=== PATIENT | female | born 1955 | race Caucasian/White ===

== ENCOUNTER → 2021-11-17 | Outpatient (CLI) | payer MEDICARE ==
[2021-11-17 10:23] VITALS: BP 124/75; PULSE 89; RESP 18; TEMP 98.4
--- NOTE | 2021-11-17 11:23 | P.HPOB ---
History of Present Illness H&P Date: 11/17/21 Chief Complaint: The patient is here for her routine gynecologic exam and ma mmogram. This is a 65-year-old with an LMP of 2011. The patient is here to establish with this office. Her last pelvic exam was about 3 years ago. She states she saw somebody out of town for this. She had some type of benign growth removed from her cervix at that time. She is without gynecologic complaints and denies any postmenopausal bleeding. Review of Systems The patient has gained 12 pounds over the last year. She denies respiratory, cardiac, or G.I. problems. Past Medical History Past Medical History: Hypertension, Osteoarthritis (OA) History of Any Multi-Drug Resistant Organisms: None Reported Past Surgical History: Joint Replacement, Orthopedic Surgery Additional Past Surgical History / Comment(s): 1972 BL ORIF SURGERY, D&C for RETAINED PLACENTA, LASIK EYE, TOTAL L KNEE REPLACEMENT 2019. Colonoscopy 2020(next after 10y) Past Anesthesia/Blood Transfusion Reactions: No Reported Reaction Past Psychological History: No Psychological Hx Reported (She denies any current depression.) Smoking Status: Never smoker Past Alcohol Use History: Occasional (One per week) Past Drug Use History: None Reported Additional History: She has been since 1987 and this is her second marriage. 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 - Past Family History Mother Family Medical History: Myocardial Infarction ([place]) Additional Family Medical History / Comment(s): Ulcerative colitis. Maternal grandmother had an [place]. Father Family Medical History: Diabetes Mellitus, Hypertension Additional Family Medical History / Comment(s): Paternal grandmother and paternal aunt had breast cancer. Medications and Allergies Home Medications Medication Instructions Recorded Confirmed Type Multivitamin [Multivitamins Adult 1 cap PO DAILY 11/17/21 11/17/21 History Gummies] amLODIPine [Norvasc] 10 mg PO DAILY 11/17/21 11/17/21 History Allergies Allergy/AdvReac Type Severity Reaction Status Date / Time No Known Allergies Allergy Unverified 11/17/21 10:13 Exam Vital Signs Temp Pulse Resp BP Pulse Ox 11/17/21 10:16 98.4 F 89 18 124/75 98 Intake and Output 11/16/21 11/17/21 11/17/21 22:59 06:59 14:59 Other: Weight 82.554 kg Height 5 feet 5 inches, weight 182 pounds, BMI 30.3. This is a well-developed well-nourished white female who is alert and oriented times 3 in no acute distress. HEENT: Within normal limits. NECK: Supple without mass or thyromegaly. CHEST AND LUNGS: Clear to auscultation. There is a benign-appearing brown mole in the left subclavicular region measuring 8 x 9 mm. She states it has been there for many years. HEART: Regular rate and rhythm. BREASTS: Are without mass or discharge. AXILLARY EXAM: Negative for adenopathy. BACK: Negative for CVA tenderness. ABDOMEN: Soft, nontender, without palpable masses. PELVIC EXAM: Normal external genitalia with mild atrophy. Cervix and vagina appear normal with mild atrophy. There is no unusual discharge. There is a small grade 1-2 uterine prolapse which is asymptomatic. There is no other evidence of prolapse. The uterus is midposition, nongravid size and nontender. There are no palpable adnexal masses or tenderness. RECTAL EXAM: Rectovaginal exam is negative for mass or tenderness and is negative for occult blood. EXTREMITIES: Nontender. IMPRESSION: 1. 65-year-old menopausal female with asymptomatic grade 1-2 uterine prolapse and otherwise unremarkable gynecologic exam. PLAN: 1. Pap smear cotest was performed. Being that we do not have her exact Pap smear screening history, we will continue cervical screening until we have 2 negative Pap smear cotest. 2. Self breast awareness was discussed with the patient. We have also discussed symptoms associated with inflammatory breast cancer. 3. Screening mammogram will be done today. 4. I have recommended that she see a warp picker for skin checks and to monitor the mole on the left subclavicular region. 5. Osteoporosis prevention was discussed. I have stressed the importance of adequate calcium, vitamin D and regular exercise. Recommended amounts of calcium and vitamin D were also discussed. She states she had a normal bone density test 3 years ago. We will plan on repeating the bone density test in approximately 2 years. 6. She did receive a Covid vaccination and has received 2 boosters. 7. She was advised to return in one year for her annual well woman exam.
--- NOTE | 2021-11-18 11:25 | MM ---
Reason for Exam: Screening (asymptomatic). Last mammogram was performed 1 year(s) and 5 month(s) ago. Patient History: Menarche at age 12. Postmenopausal. Maternal unspecified had breast cancer. Risk Values: Ruth Ann 5 year model risk: 1.2%. NCI Lifetime model risk: 4.6%. Prior Study Comparison: 08/27/2003 Right Special View Mammogram, [facility]. 03/05/2017 Bilateral MG screening mammo w CAD - 2, [facility]. 07/03/2020 Bilateral MG screening mammo w CAD - 2, [facility]. Tissue Density: There are scattered fibroglandular densities. Findings: Analyzed By CAD. There is no suspicious group of microcalcifications or new suspicious mass in either breast. Overall Assessment: Negative, BI-RAD 1 Management: Screening Mammogram of both breasts in 1 year. A clinical breast exam by your physician is recommended on an annual basis and results should be correlated with mammographic findings. Electronically signed and approved by: Edgar Cobian M.D.
== END ==
LOC: WWCWWP 09:58
PROVIDERS: ATTEND Obstetrics & Gynecology
DX: Z01.419 Encounter for gynecological examination (general) (routine) without abnormal findings (principal); Z12.31 Encounter for screening mammogram for malignant neoplasm of breast; I10 Essential (primary) hypertension; M19.90 Unspecified osteoarthritis, unspecified site; F32.A Depression, unspecified; Z78.0 Asymptomatic menopausal state; Z79.899 Other long term (current) drug therapy; Z80.3 Family history of malignant neoplasm of breast
CPT/HCPCS: 77067

== ENCOUNTER → 2022-02-10 | Outpatient (CLI) | payer MEDICARE ==
--- NOTE | 2022-02-11 19:21 | BD ---
EXAMINATION TYPE: Axial Bone Density DATE OF EXAM: 02/10/2022 COMPARISON: NONE CLINICAL HISTORY: 66 year old Female. ICD-10 CODE: Z78.0 MENOPAUSAL STATE Height: 63 Weight: 176.5 FRAX RISK QUESTIONS: Alcohol (3 or more units per day): no Family History (Parent hip fracture): no Glucocorticoids (More than 3mos): no (Ex: prednisone, prednisolone, methylprednisolone, dexamethasone, and hydrocortisone). History of Fracture in Adulthood: yes Secondary Osteoporosis: 1. Type 1 Diabetes: no 2. Hyperthyroidism: no 3. Menopause before 45: no 4. Malnutrition: no 5. Chronic liver disease: no Rheumatoid Arthritis: no Current Tobacco Use: no RISK FACTORS HISTORY OF: Surgery to Spine/Hip(right/left)/Wrist (right/left): bilateral femurs When: age 18 Family History of Osteoporosis: yes Active: yes Diet low in dairy products/other sources of calcium: no Postmenopausal woman: yes Lost more than 2 inches in height since high school: yes MEDICATIONS: Additional History: EXAM MEASUREMENTS: Bone mineral densitometry was performed using the [employer] System. Bone mineral density as measured about the Lumbar spine is: ----- L1-L4(G/cm2): 1.141 T Score Values are as follows: ----- L1: -1.1 ----- L2: -0.8 ----- L3: 0.5 ----- L4: -0.2 ----- L1-L4: -0.3 Bone mineral density : baseline Bone mineral density about the L Wrist (g/cm2): 0.622 T Score values are as follows: -----Dist. R+U: -0.6 -----Prox. R+U: -0.8 -----Radius total: -0.9 Bone mineral density : baseline IMPRESSION: Normal (Values between +1 and -1 indicate normal bone mass). Consider repeating this study in 5 year s or sooner if there is some new clinical indication. NOTE: T-SCORE=SD OF THE YOUNG ADULT MEAN.
== END | disposition home or self-care (01) ==
LOC: RADBDWWP 10:05
PROVIDERS: ATTEND Family Medicine
DX: M85.88 Other specified disorders of bone density and structure, other site (principal)
CPT/HCPCS: 77080

== ENCOUNTER → 2022-03-18 | Outpatient (CLI) | payer MEDICARE ==
--- NOTE | 2022-03-18 14:02 | US ---
EXAMINATION TYPE: US venous doppler duplex LE LT DATE OF EXAM: 03/18/2022 1:03 PM COMPARISON: NONE CLINICAL HISTORY: 66-year-old female pain LUE, LLE R60.0. SIDE PERFORMED: left TECHNIQUE: The lower extremity deep venous system is examined utilizing real time linear array sonog svitlana with graded compression, doppler sonography and color-flow sonography. FINDINGS: VESSELS IMAGED: Common Femoral Vein Deep Femoral Vein Greater Saphenous Vein * Femoral Vein Popliteal Vein Small Saphenous Vein * Proximal Calf Veins (* superficial vessels) Left Leg: Negative for DVT IMPRESSION: No evidence for DVT within the left lower extremity imaged from the groin to the upper calf.
--- NOTE | 2022-03-18 14:45 | US ---
EXAMINATION TYPE: US venous doppler duplex UE LT DATE OF EXAM: 03/18/2022 COMPARISON: NONE CLINICAL HISTORY: Left upper extremity swelling. SIDE PERFORMED: Left. IMPRESSION: Grayscale, color doppler, spectral doppler imaging performed of the deep veins of the upper extremiti es. There is normal flow, compressibility and vascular waveforms.
== END | disposition home or self-care (01) ==
LOC: RADUSWWP 12:16
PROVIDERS: ATTEND Family Medicine
DX: R60.0 Localized edema (principal)

== ENCOUNTER 2023-07-09 09:26 | Emergency (ER) | payer MEDICARE ==
[2023-07-09] MEDS ORDERED: ONDANSETRON ODT 4 MG TAB PO STA (09:27)
--- NOTE | 2023-07-09 09:30 | ED ---
Dizziness HPI - General Source: patient, RN notes reviewed Mode of arrival: wheelchair Limitations: no limitations - History of Present Illness MD Complaint: dizziness <Rain Burks - Last Filed: 07/09/23 09:28> - General Source: patient, RN notes reviewed, old records reviewed <Shahzad Ferguson - Last Filed: 07/09/23 17:11> - General Chief Complaint: Dizziness Stated Complaint: dizziness Time Seen by Provider: 07/09/23 09:27 - History of Present Illness Initial Comments: This is a 67-year-old female who presents to the emergency department for dizziness. States that since 3-3:30am she has been very dizzy and has been unable to walk as a result. Describes this as a room spinning sensation and symptoms are worse with movement. She has associated nausea. Denies any hx of similar symptoms in the past or hx of vertigo. She did have a headache yesterday which is very unusual for her. Denies any chest pain or shortness of breath. (Rain Burks) Patient is a 67-year-old female who presents emergency department for multiple complaints. Had some dizziness or vertigo type symptoms this morning when she woke up. Also had a sensation this morning at approximately 3 AM where her feet felt numb and "they did not feel a part of me." Was bilateral. Symptoms have since resolved. Has a very mild headache at this point but no other symptoms. Is not on blood thinners. Denies trauma. Denies any other acute complaints at this time. Presents for further evaluation at this time. Originally seen as a quick note and workup started.Headache is not the worst headache of her life. (Shahzad Ferguson) - Related Data Home Medications Medication Instructions Recorded Confirmed Multivitamin [Multivitamins Adult 1 cap PO DAILY 11/17/21 11/17/21 Gummies] amLODIPine [Norvasc] 10 mg PO DAILY 11/17/21 11/17/21 Previous Rx's Medication Instructions Recorded Meclizine [Antivert] 12.5 mg PO Q6H PRN 3 Days #12 07/09/23 tablet Allergies Allergy/AdvReac Type Severity Reaction Status Date / Time No Known Allergies Allergy Verified 07/09/23 09:34 Review of Systems ROS Other: All systems not noted in ROS Statement are negative. <Rain Burks - Last Filed: 07/09/23 09:28> ROS Other: All systems not noted in ROS Statement are negative. <Shahzad Ferguson - Last Filed: 07/09/23 17:11> ROS Statement: Those systems with pertinent positive or pertinent negative responses have been documented in the HPI. Review of Systems: CONST: Denies fever EYES: Denies blurry vision ENT: Denies nasal congestion C/V: Denies Chest pain RESP: Denies shortness of breath GI: Denies abdominal pain : Denies dysuria SKIN: Denies rash. MSK: Denies joint pain. NEURO: Endorses mild headache (Shahzad Ferguson) Past Medical History Past Medical History: Hypertension, Osteoarthritis (OA) History of Any Multi-Drug Resistant Organisms: None Reported Past Surgical History: Joint Replacement, Orthopedic Surgery Additional Past Surgical History / Comment(s): 1972 BL ORIF SURGERY, D&C for RETAINED PLACENTA, LASIK EYE, TOTAL L KNEE REPLACEMENT 2019. Colonoscopy 2020(next after 10y) Past Anesthesia/Blood Transfusion Reactions: No Reported Reaction Past Psychological History: No Psychological Hx Reported (She denies any current depression.) Smoking Status: Never smoker Past Alcohol Use History: Occasional (One per week) Past Drug Use History: None Reported - Past Family History Mother Family Medical History: Myocardial Infarction ([place]) Additional Family Medical History / Comment(s): Ulcerative colitis. Maternal grandmother had an [place]. Father Family Medical History: Diabetes Mellitus, Hypertension Additional Family Medical History / Comment(s): Paternal grandmother and paternal aunt had breast cancer. <Rain Burks - Last Filed: 07/09/23 09:28> General Exam <Rain Burks - Last Filed: 07/09/23 09:28> <Shahzad Ferguson - Last Filed: 07/09/23 17:11> - General Exam Comments Initial Comments: Visual Physical Exam Vital signs reviewed General: Well-appearing, nontoxic, no acute distress. Head: Normocephalic, atraumatic Eyes: PERRLA, EOMI ENT: Airway patent Chest: Nonlabored breathing Skin: No visual rash, normal skin tone Neuro: Alert and oriented 3 Musculoskeletal: No gross abnormalities (Rain Burks) General: Appears in no acute distress. HEAD: Normal with no signs of head trauma. EYES: PERRLA, EOMI, conjunctiva normal, no discharge. Pupils are 3 mm and equal bilaterally. ENT: Hearing grossly intact, normal oropharynx. RESPIRATORY: Clear breath sounds bilaterally. No wheezes, rales, or rhonchi. C/V: Regular rate and rhythm. S1 and S2 auscultated, no edema, peripheral pulses 2+ and intact throughout ABD: Abd is soft, nontender, nondistended EXT: Normal range of motion, no obvious deformity SKIN: No rashes or lesions observed on exposed skin. NEURO: Alert and oriented x 4. Cranial nerves II-XII intact. No focal sensory or strength deficits. NIH is 0. GCS of 15. Normal cerebellar function as evidence by finger-nose testing, xobe-vv-cowi testing. Absence of dysdiadochokinesia. (Shahzad Ferguson) Course Vital Signs 07/09/23 07/09/23 09:31 14:38 Temperature 98.6 F 98.7 F Pulse Rate 120 H 92 Respiratory 18 18 Rate Blood Pressure 153/83 166/86 O2 Sat by Pulse 99 97 Oximetry Medical Decision Making <Rain Burks - Last Filed: 07/09/23 09:28> - Lab Data Result diagrams: 07/09/23 09:31 07/09/23 09:31 - EKG Data -: EKG Interpreted by Me <Shahzad Ferguson - Last Filed: 07/09/23 17:11> - Medical Decision Making I performed the QuickNote portion of this chart. Signed Rain Burks PA-C. (Rain Burks) Was pt. sent in by a medical professional or institution ([facility], [employer], urgent care, hospital, or longterm...) When possible be specific @ -No Did you speak to anyone other than the patient for history (EMS, parent, family, police, friend...)? What history was obtained from this source @ -No Did you review nursing and triage notes (agree or disagree)? Why? @ -I reviewed and agree with nursing and triage notes Were old charts reviewed (outside hosp., previous admission, EMS record, old EKG, old radiological studies, urgent care reports/EKG's, longterm records)? Report findings @ -Old charts reviewed Differential Diagnosis (chest pain, altered mental status, abdominal pain women, abdominal pain men, vaginal bleeding, weakness, fever, dyspnea, syncope, headache, dizziness, GI bleed, back pain, seizure, CVA, palpatations, mental health, musculoskeletal)? @ -Differential Dizziness: Benign paroxysmal positional Vertigo, Menieres disease, otitis media, acoustic neuroma, vertebrobasilar insufficiency, cerebellar stroke, encephalitis, hypovolemic, arrhythmia, coronary artery syndrome, anemia, this is not meant to be an all-inclusive list EKG interpreted by me (3pts min.). @ -As above X-rays interpreted by me (1pt min.). @ -Chest x-ray reveals no obvious acute cardiopulmonary process. CT interpreted by me (1pt min.). @ -CT brain reveals no obvious acute intracranial injury or process. U/S interpreted by me (1pt. min.). @ -None done What testing was considered but not performed or refused? (CT, X-rays, U/S, la bs)? Why? @ -None What meds were considered but not given or refused? Why? @ -I offered analgesic medications for patient's headache which was declined. She is currently asymptomatic otherwise. Did you discuss the management of the patient with other professionals (professionals i.e. , PA, [employer], lab, RT, psych nurse, social media coordinator, clother in, teacher, command and control officer, housing case manager)? Give summary @ -No Was smoking cessation discussed for >3mins.? @ -No Was critical care preformed (if so, how long)? @ -No Were there social determinants of health that impacted care today? How? (Homelessness, low income, unemployed, alcoholism, drug addiction, transportation, low edu. Level, literacy, decrease access to med. care, [facility], rehab)? @ -No Was there de-escalation of care discussed even if they declined (Discuss DNR or withdrawal of care, Hospice)? DNR status @ -No What co-morbidities impacted this encounter? (DM, HTN, Smoking, COPD, CAD, Cancer, CVA, ARF, Chemo, Hep., AIDS, mental health diagnosis, sleep apnea, morbid obesity)? @ -None Was patient admitted / discharged? Hospital course, mention meds given and route, prescriptions, significant lab abnormalities, going to OR and other pe rtinent info. @ -Workup started in triage for the patient is a quick note. I evaluated her after workup was completed and she was placed in room 15. Presents with bilateral foot numbness as well as vertiginous type symptoms that occurred prior to arrival and is since resolved. No other symptoms at this time. Vital signs within acceptable limits. Exam is unremarkable. Patient's workup is also unremarkable including normal laboratory studies. Urine study is contaminated. CT brain is unremarkable. Chest x-ray unremarkable. EKG within acceptable limits. I updated the patient on the results of her workup. I did offer analgesia medications for her headache. She is currently asymptomatic at this time. Normal neuroexam. I believe it is safe for her to be discharged home. She was in agreement with this plan. I will provide her with a prescription for meclizine. I will provide the patient with a prescription for meclizine. I instructed the patient to follow up with their PCP in the next 1-3 days. I explained that the patient should return to the emergency department if they experience any worsening symptoms. Strict return precautions were discussed with the patient. The patient expressed understanding of these instructions. I answered all questions that the patient had. The patient was discharged home in good condition with their prescriptions and follow up information. Undiagnosed new problem with uncertain prognosis? @ -No Drug Therapy requiring intensive monitoring for toxicity (Heparin, Nitro, Insulin, Cardizem)? @ -No Were any procedures done? @ -No Diagnosis/symptom? @ -Transient ataxia, vertigo. Resolved Acute, or Chronic, or Acute on Chronic? @ -Acute Uncomplicated (without systemic symptoms) or Complicated (systemic symptoms)? @ -Uncomplicated Side effects of treatment? @ -No Exacerbation, Progression, or Severe Exacerbation? @ -No Poses a threat to life or bodily function? How? (Chest pain, [place], [place], pneumonia, PE, COPD, DKA, ARF, appy, cholecystitis, CVA, Diverticulitis, Homicidal, Suicidal, threat to staff... and all critical care pts) @ -Unlikely (Shahzad Ferguson) - Lab Data Lab Results 07/09/23 07/09/23 07/09/23 Range/Units 09:31 09:31 09:31 WBC 6.9 (3.8-10.6) k/uL RBC 5.17 (3.80-5.40) m/uL Hgb 15.0 (11.4-16.0) gm/dL Hct 46.7 H (34.0-46.0) % MCV 90.3 (80.0-100.0) fL MCH 29.0 (25.0-35.0) pg MCHC 32.1 (31.0-37.0) g/dL RDW 12.5 (11.5-15.5) % Plt Count 290 (150-450) k/uL MPV 8.7 Neutrophils % 78 % Lymphocytes % 18 % Monocytes % 2 % Eosinophils % 1 % Basophils % 0 % Neutrophils # 5.4 (1.3-7.7) k/uL Lymphocytes # 1.2 (1.0-4.8) k/uL Monocytes # 0.1 (0-1.0) k/uL Eosinophils # 0.1 (0-0.7) k/uL Basophils # 0.0 (0-0.2) k/uL Sodium 140 (137-145) mmol/L Potassium 4.1 (3.5-5.1) mmol/L Chloride 107 (98-107) mmol/L Carbon Dioxide 23 (22-30) mmol/L Anion Gap 10 mmol/L BUN 12 (7-17) mg/dL Creatinine 0.58 (0.52-1.04) mg/dL Est GFR (CKD-EPI)AfAm >90 (>60 ml/min/1.73 sqM) Est GFR (CKD-EPI)NonAf >90 (>60 ml/min/1.73 sqM) Glucose 161 H (74-99) mg/dL Plasma Lactic Acid Johnny (0.7-2.0) mmol/L Calcium 9.4 (8.4-10.2) mg/dL Total Bilirubin 0.6 (0.2-1.3) mg/dL AST 35 (14-36) U/L ALT 42 H (4-34) U/L Alkaline Phosphatase 136 H (38-126) U/L Troponin I (0.000-0.034) ng/mL Total Protein 8.1 (6.3-8.2) g/dL Albumin 4.8 (3.5-5.0) g/dL Urine Color Yellow Urine Appearance Turbid H (Clear) Urine pH 6.0 (5.0-8.0) Ur Specific [place] 1.018 (1.001-1.035) Urine Protein Trace H (Negative) Urine Glucose (UA) Negative (Negative) Urine Ketones Negative (Negative) Urine Blood Negative (Negative) Urine Nitrite Negative (Negative) Urine Bilirubin Negative (Negative) Urine Urobilinogen <2.0 (<2.0) mg/dL Ur Leukocyte Esterase Trace H (Negative) Urine RBC 3 (0-5) /hpf Urine WBC 6 H (0-5) /hpf Ur Squamous Epith Cells 36 H (0-4) /hpf Urine Bacteria Occasional H (None) /hpf Urine Mucus Occasional H (None) /hpf Influenza Type A (PCR) (Not Detectd) Influenza Type B (PCR) (Not Detectd) RSV (PCR) (Not Detectd) SARS-CoV-2 (PCR) (Not Detectd) 07/09/23 07/09/23 07/09/23 Range/Units 09:31 09:31 09:31 WBC (3.8-10.6) k/uL RBC (3.80-5.40) m/uL Hgb (11.4-16.0) gm/dL Hct (34.0-46.0) % MCV (80.0-100.0) fL MCH (25.0-35.0) pg MCHC (31.0-37.0) g/dL RDW (11.5-15.5) % Plt Count (150-450) k/uL MPV Neutrophils % % Lymphocytes % % Monocytes % % Eosinophils % % Basophils % % Neutrophils # (1.3-7.7) k/uL Lymphocytes # (1.0-4.8) k/uL Monocytes # (0-1.0) k/uL Eosinophils # (0-0.7) k/uL Basophils # (0-0.2) k/uL Sodium (137-145) mmol/L Potassium (3.5-5.1) mmol/L Chloride (98-107) mmol/L Carbon Dioxide (22-30) mmol/L Anion Gap mmol/L BUN (7-17) mg/dL Creatinine (0.52-1.04) mg/dL Est GFR (CKD-EPI)AfAm (>60 ml/min/1.73 sqM) Est GFR (CKD-EPI)NonAf (>60 ml/min/1.73 sqM) Glucose (74-99) mg/dL Plasma Lactic Acid Johnny 1.3 (0.7-2.0) mmol/L Calcium (8.4-10.2) mg/dL Total Bilirubin (0.2-1.3) mg/dL AST (14-36) U/L ALT (4-34) U/L Alkaline Phosphatase (38-126) U/L Troponin I <0.012 (0.000-0.034) ng/mL Total Protein (6.3-8.2) g/dL Albumin (3.5-5.0) g/dL Urine Color Urine Appearance (Clear) Urine pH (5.0-8.0) Ur Specific [place] (1.001-1.035) Urine Protein (Negative) Urine Glucose (UA) (Negative) Urine Ketones (Negative) Urine Blood (Negative) Urine Nitrite (Negative) Urine Bilirubin (Negative) Urine Urobilinogen (<2.0) mg/dL Ur Leukocyte Esterase (Negative) Urine RBC (0-5) /hpf Urine WBC (0-5) /hpf Ur Squamous Epith Cells (0-4) /hpf Urine Bacteria (None) /hpf Urine Mucus (None) /hpf Influenza Type A (PCR) Not Detected (Not Detectd) Influenza Type B (PCR) Not Detected (Not Detectd) RSV (PCR) Not Detected (Not Detectd) SARS-CoV-2 (PCR) Not Detected (Not Detectd) - EKG Data EKG Comments: 12-lead Electrocardiogram Interpretation Note EKG was reviewed and interpreted by myself. 12-lead ECG performed at 1018 is interpreted by me as revealing normal sinus rhythm at a rate of 99 beats per minute. Left axis deviation. [place] interval is 160 ms, QRS duration is 90 ms, QTc is 404 ms.. There were no ST or T wave abnormalities to suggest myocardial ischemia or injury. R wave progression across the precordium was satisfactory. By my interpretation this EKG is non-diagnostic for acute ischemia. (Shahzad Ferguson) Disposition <Rain Burks - Last Filed: 07/09/23 09:28> Is patient prescribed a controlled substance at d/c from ED?: No Time of Disposition: 14:32 <Shahzad Ferguson - Last Filed: 07/09/23 17:11> Clinical Impression: Ataxia, Vertigo Disposition: HOME SELF-CARE Condition: Good Instructions (If sedation given, give patient instructions): Vertigo (ED), Dizziness (ED) Prescriptions: Meclizine [Antivert] 12.5 mg PO Q6H PRN 3 Days #12 tablet PRN Reason: Vertigo Referrals: Kimberlyn Patricia MD [Primary Care Provider] - 1-2 days
[2023-07-09 09:44] VITALS: RESP 18
[2023-07-09 10:26] LABS: Basophils % (A) 0 %; Eosinophils # (A) 0.1 k/uL (0-0.7); Eosinophils % (A) 1 %; HCT 46.7 % (34.0-46.0); Lymphocytes # (A) 1.2 k/uL (1.0-4.8); Lymphocytes % (A) 18 %; MCHC 32.1 g/dL (31.0-37.0); MCV 90.3 fL (80.0-100.0); Mean Platelet Volume 8.7; Monocytes # (A) 0.1 k/uL (0-1.0); Monocytes % (A) 2 %; Neutrophils # (A) 5.4 k/uL (1.3-7.7); Neutrophils % (A) 78 %; Platelet Count 290 k/uL (150-450); RBC 5.17 m/uL (3.80-5.40); RDW 12.5 % (11.5-15.5); WBC 6.9 k/uL (3.8-10.6)
[2023-07-09 10:53] LABS: ALT 42 U/L (4-34); AST 35 U/L (14-36); African American GFR (CKD) >90 (>60 ml/min/1.73 sqM); Albumin 4.8 g/dL (3.5-5.0); Alkaline Phosphatase 136 U/L (38-126); Anion Gap 10 mmol/L; Blood Urea Nitrogen 12 mg/dL (7-17); Calcium 9.4 mg/dL (8.4-10.2); Carbon Dioxide 23 mmol/L (22-30); Chloride 107 mmol/L (98-107); Glucose 161 mg/dL (74-99); Non-African American GFR(CKD) >90 (>60 ml/min/1.73 sqM); Potassium 4.1 mmol/L (3.5-5.1); Sodium 140 mmol/L (137-145); Total Bilirubin 0.6 mg/dL (0.2-1.3); Total Protein 8.1 g/dL (6.3-8.2)
--- NOTE | 2023-07-09 11:37 | CT ---
EXAMINATION TYPE: CT brain wo con DATE OF EXAM: 07/09/2023 COMPARISON: None HISTORY: dizzy CT DLP: 1095.[address] of the brain was performed. The ventricles, basal cisterns and sulci overlying the cerebral convexities demonstrate mild enlargem ent. There is no evidence for intracranial hemorrhage or sulcal effacement. There is decreased attenuation about the periventricular white matter and deep white matter of both c erebral hemispheres, compatible with chronic small vessel ischemia. Differential diagnosis does inclu de demyelination. No mass effects are seen.No midline shift. Osseous calvarium is intact. If symptoms persist consider MRI. IMPRESSION: 1. Age related atrophic and chronic small vessel ischemic change without acute intracranial process s een at this time.
--- NOTE | 2023-07-09 11:59 | XR ---
EXAMINATION TYPE: XR chest 2V DATE OF EXAM: 07/09/2023 COMPARISON: NONE HISTORY: Shortness of breath TECHNIQUE: Frontal and lateral views of the chest are obtained. FINDINGS: Scattered senescent parenchymal changes noted. Hyperinflation No evidence for infiltrate. No evidence for atelectasis. Heart size is stable. Mediastinal structures are stable and grossly unremarkable. No evidence for hilar prominence. Degenerative changes dorsal spine. IMPRESSION: 1. No evidence for acute pulmonary disease.
[2023-07-09 13:42] LABS: Appearance,Urine Turbid (Clear); Bacteria,Urine Occasional /hpf; Bilirubin,Urine Negative (Negative); Blood,Urine Negative (Negative); Color,Urine Yellow; Glucose,Urine (UA) Negative (Negative); Ketones,Urine Negative (Negative); Leukocyte Esterase,Urine Trace (Negative); Mucus,Urine Occasional /hpf; Nitrite,Urine Negative (Negative); Protein,Urine Trace (Negative); RBC,Urine 3 /hpf (0-5); Specific Gravity,Urine 1.018 (1.001-1.035); Squamous Epithelial Cell,Urine 36 /hpf (0-4); Urobilinogen,Urine <2.0 mg/dL (<2.0); WBC,Urine 6 /hpf (0-5)
[2023-07-09 15:04] VITALS: BP 166/86; PULSE 92; TEMP 98.7
== END 2023-07-09 14:57 | disposition home or self-care (01) ==
LOC: EC 09:26
DX: R42 Dizziness and giddiness (principal); I10 Essential (primary) hypertension; M19.90 Unspecified osteoarthritis, unspecified site; Z79.899 Other long term (current) drug therapy; Z20.822 Contact with and (suspected) exposure to COVID-19
CPT/HCPCS: 36415; 70450; 71046; 80053; 81001; 83605; 84484; 85025; 87636; 93005; 99285

== ENCOUNTER 2024-01-03 06:34 | Day surgery (SDC) | payer MEDICARE ==
[2024-01-03] MEDS: LACTATED RINGERS 1,000 ML IV SCH (07:05)
[2024-01-03 07:07] VITALS: TEMP 97.5
[2024-01-03] MEDS: IV FLUID CONTINUATION 1,000 ML IV ONE ×2 (07:07→07:40)
[2024-01-03] MEDS ORDERED: PROPOFOL 10 MG/ML 20 ML VIAL IV ONE (07:46)
[2024-01-03] MEDS ORDERED: LIDOCAINE 1% INJ 10MG/ML (20 ML MDV) ONE (07:46)
--- NOTE | 2024-01-03 07:52 | P.PCN ---
Date of Procedure: 01/03/24 Procedure(s) Performed: BRIEF HISTORY: Patient is a 68-year-old, pleasant, white female scheduled for an upper endoscopy as a part of evaluation of longstanding history of GERD. Presently on Pepcid 20 mg twice daily with good relief of her symptoms... PROCEDURE PERFORMED: Esophagogastroduodenoscopy with biopsy. PREOPERATIVE DIAGNOSIS: Longstanding history of GERD. IV sedation per anesthesia. PROCEDURE: After informed consent was obtained, the patient was brought into the endoscopy unit. IV sedation was administered by Anesthesia under continuous monitoring. Initially the Olympus GIF-140 video endoscope was inserted into the mouth. Esophagus intubated without any difficulty. It was gradually advanced into the stomach and duodenum and carefully examined. The bulb and the second part of the duodenum appeared normal. The scope at this time was withdrawn to the stomach, adequately insufflated with air, and upon careful examination, mucosa of the antrum meatus of erythema consistent with gastritis and biopsies were done from this area. Mucosa of the, body, cardia and the fundus appeared normal. The scope was then withdrawn into the esophagus. Small hiatal hernia noted. The GE junction was located at 39 cm from the incisors. There was 1 superficial erosion in the distal esophagus consistent with LA grade a reflux esophagitis. The rest of the esophagus appeared normal. There were no erosions or ulcerations seen and the patient tolerated the procedure well. IMPRESSION: 1. 1 superficial erosion in the distal esophagus consistent with LA grade a reflux esophagitis. 2. Mild antral gastritis 3. Small hiatal hernia. RECOMMENDATIONS: The findings of this examination were discussed with the patient as well as her family. Follow-up with the biopsy results. Continue with Pepcid 20 mg twice daily and follow antireflux measures.
[2024-01-03 08:33] VITALS: BP 108/76; PULSE 78; RESP 18
== END 2024-01-03 08:33 | disposition home or self-care (01) ==
LOC: ORWHC2ENDO 06:34
PROVIDERS: ATTEND Internal Medicine Gastroenterology
DX: K29.50 Unspecified chronic gastritis without bleeding (principal); K22.10 Ulcer of esophagus without bleeding; K44.9 Diaphragmatic hernia without obstruction or gangrene; K21.9 Gastro-esophageal reflux disease without esophagitis; I10 Essential (primary) hypertension; Z79.899 Other long term (current) drug therapy; Z83.79 Family history of other diseases of the digestive system
CPT/HCPCS: 88305; 43239; J2001; J2704

== ENCOUNTER → 2024-05-22 | Outpatient (CLI) | payer MEDICARE ==
[2024-05-22 11:44] VITALS: BP 144/85; PULSE 66; RESP 17; TEMP 98.2
--- NOTE | 2024-05-22 12:17 | P.HPOB ---
History of Present Illness H&P Date: 05/22/24 Chief Complaint: The patient is here for her routine gynecologic exam and ma mmogram This is a 68-year-old with an LMP of 2012. The patient is without gynecologic complaints. She has a known mild uterine prolapse, but she states this is not causing her any problems. Review of Systems The patient has gained 4 pounds over the last 2 years. She denies respiratory, cardiac, or G.I. problems. Past Medical History Past Medical History: GERD/Reflux, Hypertension, Osteoarthritis (OA) Additional Past Medical History / Comment(s): Episode of atrial tachycardia in 2023. Osteopenia(RDH) 2023. Hiatal hernia and gastritis. 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 History of Any Multi-Drug Resistant Organisms: None Reported Past Surgical History: Joint Replacement, Orthopedic Surgery Additional Past Surgical History / Comment(s): 1972 BL ORIF SURGERY, D&C for RETAINED PLACENTA, LASIK EYE, TOTAL L KNEE REPLACEMENT 2019. Colonoscopy 2020(next after 10y); wisdom teeth. EGD 2023. Past Anesthesia/Blood Transfusion Reactions: Family History of Problems w/ Anesthesia, Postoperative Nausea & Vomiting (PONV) Additional Past Anesthesia/Blood Transfusion Reaction / Comment(s): mom - PONV Past Psychological History: No Psychological Hx Reported Smoking Status: Never smoker Past Alcohol Use History: None Reported Past Drug Use History: None Reported Additional History: She has been since 1987 and this is her second marriage. 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 - Past Family History Mother Family Medical History: Myocardial Infarction ([place]) Additional Family Medical History / Comment(s): Ulcerative colitis. Maternal grandmother had an [place]. Father Family Medical History: Diabetes Mellitus, Hypertension Additional Family Medical History / Comment(s): Paternal grandmother and paterna l aunt had breast cancer. Medications and Allergies Home Medications Medication Instructions Recorded Confirmed Type amLODIPine [Norvasc] 10 mg PO DAILY 11/17/21 05/22/24 History Famotidine [Pepcid] 20 mg PO BID 12/30/23 05/22/24 History Multivit with Calcium,Iron,Min 1 each PO DAILY 12/30/23 05/22/24 History [Women's Multivitamin] Allergies Allergy/AdvReac Type Severity Reaction Status Date / Time No Known Allergies Allergy Verified 05/22/24 11:34 Exam Vital Signs Temp Pulse Resp BP Pulse Ox 05/22/24 11:36 98.2 F 66 17 144/85 98 Intake and Output 05/21/24 05/22/24 05/22/24 22:59 06:59 14:59 Other: Weight 84.368 kg Height 5 feet 4 inches, weight 186 pounds, BMI 31.9. This is a well-developed well-nourished white female who is alert and oriented times 3 in no acute distress. HEENT: Within normal limits. NECK: Supple without mass or thyromegaly. CHEST AND LUNGS: Clear to auscultation. She recently had a left subclavicular mole removed by her PCP and this is healing well. HEART: Regular rate and rhythm. BREASTS: Are without mass or discharge. AXILLARY EXAM: Negative for adenopathy. BACK: Negative for CVA tenderness. ABDOMEN: Soft, nontender, without palpable masses. PELVIC EXAM: Normal external genitalia with mild atrophy. Cervix and vagina appear normal with mild atrophy. There is no unusual discharge. There is a grade 2 uterine prolapse with a grade 2 cystocele and grade 2 rectocele. The uterus is midposition, nongravid size and nontender. There are no palpable adnexal masses or tenderness. RECTAL EXAM: Rectovaginal exam is negative for mass or tenderness and is negativ e for occult blood. EXTREMITIES: Nontender. IMPRESSION: 1. 68-year-old menopausal female with asymptomatic grade 2 cystocele, grade 2 uterine prolapse, and grade 2 rectocele. 2. Osteopenia. 3. Mildly elevated blood pressure. PLAN: 1. Pap smear was deferred since she had a negative Pap smear cotest on 11/17/2021. This will be repeated after 4 to 5 years and if that 1 is also negative, we will discontinue Pap smears. 2. Self breast awareness was discussed with the patient. We have also discussed symptoms associated with inflammatory breast cancer. 3. Screening mammogram will be done today. 4. Osteoporosis prevention was discussed. I have stressed the importance of adequate calcium, vitamin D and regular exercise. Recommended amounts of calcium and vitamin D were also discussed. She states she had a bone density test done at [facility] bone all this year and showed osteopenia. She will try to have a copy sent to me. We will repeat this in approximately 2 years. 5. Conservative management for her pelvic prolapse. I have recommended that she avoid holding stool and urine longer than necessary. She will call if this is causing her problems. 6. She will check her blood pressure at home on a regular basis and follow-up with her PCP for blood pressure elevations. 7. The patient was advised to return in 1-2 years for her well woman examination and as needed.
--- NOTE | 2024-05-23 09:28 | MM ---
Reason for Exam: Screening (asymptomatic). Last mammogram was performed 2 year(s) and 6 month(s) ago. Patient History: Menarche at age 12. First Full-Term at age 17. Postmenopausal. Paternal grandmother had breast cancer, age 83. Paternal aunt had breast cancer, age 50. Paternal aunt had breast cancer, age 60. Risk Values: Ruth Ann 5 year model risk: 1.2%. NCI Lifetime model risk: 4.0%. Prior Study Comparison: 03/05/2017 Bilateral MG screening mammo w CAD - 2, [facility]. 07/03/2020 Bilateral MG screening mammo w CAD - 2, [facility]. 11/17/2021 Bilateral MG screening mammo w CAD, [facility]. Tissue Density: The breasts are almost entirely fatty. Findings: Analyzed By CAD. Right breast: There is no suspicious group of microcalcifications or new suspicious mass. Left breast: There is no suspicious group of microcalcifications or new suspicious mass. Overall Assessment: Negative, BI-RAD 1 Management: Screening Mammogram of both breasts in [address] [facility] will attempt to contact patient to return for supplemental views and ultrasound if indicated. Patient should continue monthly self-breast exams. A clinical breast exam by your physician is recommended on an annual basis. This exam should not preclude additional follow-up of suspicious palpable abnormalities. Note on Ruth Ann scores and lifetime risk: 1. A Ruth Ann score greater than 3% is considered moderate risk. If this is the case, consider specialist referral to assess eligibility for a risk reducing agent. 2. If overall lifetime risk for the development of breast cancer is 20% or higher, the patient may qualify for future screening with alternating mammogram and breast MRI. [facility], , 05/23/2024 9:26 AM. Electronically signed and approved by: Jasvir Doe DO
== END ==
LOC: WWCWWP 11:23
PROVIDERS: ATTEND Obstetrics & Gynecology
DX: Z12.31 Encounter for screening mammogram for malignant neoplasm of breast (principal); I10 Essential (primary) hypertension; M85.80 Other specified disorders of bone density and structure, unspecified site; N81.4 Uterovaginal prolapse, unspecified; Z80.3 Family history of malignant neoplasm of breast
CPT/HCPCS: 77063; 77067